=== PATIENT | female | born 2000 | race Two or more races ===

== ENCOUNTER → 2024-10-25 | Outpatient (CLI) | payer MEDICAID, SELFPAY ==
--- NOTE | 2024-10-25 16:24 | XR_ITS ---
Examination: Right wrist 2 views TECHNIQUE: AP lateral right wrist 2 views Date and time: October 25, 2024 1745 hours INDICATIONS: History comminuted displaced fracture distal radial metaphysis postop reduction internal fixation FINDINGS: No prior films available On the lateral view of the distal ulna is dorsally positioned, clinical clinical correlation advised Significant healing fracture distal radius with satisfactory alignment IMPRESSION: Significant healing fracture distal radius with satisfactory alignment On the lateral view the distal ulna is dorsally positioned, clinical correlation advised
== END | disposition home or self-care (01) ==
PROVIDERS: PCP Nurse Practitioner Primary Care; Referring Provider Orthopaedic Surgery; Visit Provider Orthopaedic Surgery
DX: S52.551A Other extraarticular fracture of lower end of right radius, initial encounter for closed fracture (principal); X58.XXXA Exposure to other specified factors, initial encounter
CPT/HCPCS: 73100

== ENCOUNTER → 2024-11-03 | Outpatient (CLI) | payer MEDICAID, SELFPAY ==
--- NOTE | 2024-11-03 14:30 | XR_ITS ---
Examination: Wrist, right 3 views Technique: Wrist AP, oblique, lateral 3 views Date and time of exam: October 26, 2024 1536 hours Comparison October 25, 2024 INDICATIONS: History wrist fracture postop reduction FINDINGS: Partial healing fracture distal radial metaphysis with stable and satisfactory alignment compared with October 25, 2024 IMPRESSION: Partial healing fracture distal radial metaphysis with stable and satisfactory alignment
== END | disposition home or self-care (01) ==
PROVIDERS: Referring Provider Orthopaedic Surgery; Visit Provider Orthopaedic Surgery
DX: S52.91XA Unspecified fracture of right forearm, initial encounter for closed fracture (principal); X58.XXXA Exposure to other specified factors, initial encounter
CPT/HCPCS: 73110

== ENCOUNTER → 2024-12-20 | Outpatient (CLI) | payer MEDICAID, SELFPAY ==
--- NOTE | 2024-12-20 12:09 | XR_ITS ---
Examination: Wrist, right 3 views Technique: Wrist AP, oblique, lateral 3 views Date and time of exam: December 20, 2024 1213 hours INDICATIONS: History acute wrist fracture postop reduction internal fixation, October 19, 2024 FINDINGS: Compared to November 03, 2024 healed fracture distal radial metaphysis with stable and satisfactory alignment Orthopedic hardware satisfactory position Ununited ulnar styloid hip fracture IMPRESSION: Healed fracture distal radial metaphysis with satisfactory alignment
== END | disposition home or self-care (01) ==
PROVIDERS: PCP Family Medicine; Referring Provider Orthopaedic Surgery; Visit Provider Orthopaedic Surgery
DX: S52.551D Other extraarticular fracture of lower end of right radius, subsequent encounter for closed fracture with routine healing (principal); X58.XXXD Exposure to other specified factors, subsequent encounter
CPT/HCPCS: 73110